=== PATIENT | female | born 1975 | race Caucasian/White ===

== ENCOUNTER → 2016-09-19 | Day surgery (SDC) | payer OTHER ==
[~2016-09-19] VITALS: Ht 160 cm; Wt 81.9 kg
[~2016-09-19] MED LIST: *morphine SULFATE 8 MG/ML PERIprocedure ONLY ONE; CHLORHEXIDINE GLUCONATE 2 % 1 PACK (2 CLOTHS) TOPICAL PRN; FAMOTIDINE 20 MG/2 ML VIAL ONE; INSULIN HUMAN REGULAR 1,000 UNITS/10 ML VIAL SQ PRN; LACTATED RINGER'S 1000 ML IV PRN; METOPROLOL TARTRATE 25 MG TAB PO PRN; MIDAZOLAM HCL 2 MG/2 ML VIAL ONE; MORPHINE SULFATE 4 MG/ML INJ IV PRN; ONDANSETRON HCL 4 MG/2 ML VIAL IV PUSH PRN; ONDANSETRON HCL 4 MG/2 ML VIAL ONE; POVIDONE IODINE 5% (ANTISEPSIS KIT) 4 APPLICATIONS EACH NARE PRN; PROPOFOL 200 MG/20 ML AMP IV ONE; SODIUM CHLORID 0.9% 500 ML IV PRN; ceFAZolin INJ 1,000 MG VIAL IV ONE; fentaNYL CITRATE 250 MCG/5 ML AMP ONE
[2016-09-19 08:25] VITALS: BP 140/80; PULSE 65; RESP 18; TEMP 97.6; O2SAT 100
[2016-09-19 08:48] LABS: AUTOMATED NEUTROPHIL # 3.6 TH/MM3 (1.8-7.7); BASOPHIL % 0.7 % (0.0-2.0); EOSINOPHIL # 0.1 TH/MM3 (0-0.4); EOSINOPHIL % 1.8 % (0.0-4.0); HEMATOCRIT 39.1 % (35.0-46.0); HEMO FLAGS DIFF FINAL; LYMPH % 32.4 % (9.0-44.0); MEAN CELL VOLUME 80.7 FL (80.0-100.0); MEAN CORPUSCULAR HEMOGLOBIN 26.6 PG (27.0-34.0); MONO % 7.8 % (0.0-8.0); NEUT % 57.3 % (16.0-70.0); PLATELET COUNT 228 TH/MM3 (150-450); RED BLOOD COUNT 4.84 MIL/MM3 (4.00-5.30); RED CELL DISTRIBUTION WIDTH 14.7 % (11.6-17.2); WHITE BLOOD COUNT 6.2 TH/MM3 (4.0-11.0)
--- NOTE | 2016-09-19 09:06 | RADRPT ---
EXAM DATE/TIME: 09/19/2016 08:20 [place] COMPARISON: No previous studies available for comparison. INDICATIONS : Pre op lithotripsy. Patient has kidney stone on right side. MEDICAL HISTORY : None. SURGICAL HISTORY : None. ENCOUNTER: Initial ACUITY: 1 day PAIN SCORE: 0/10 LOCATION: Bilateral Abdomen. FINDINGS: Single supine AP view of the abdomen. 8mm calculus in the region of the midpole of the right kidney. Bowel gas pattern within normal limits. Osseous structures within normal limits. CONCLUSION: 8 mm right renal calculus. Ric Fiore MD on September 19, 2016 at 9:03 Board Certified Radiologist. This report was verified electronically.
--- NOTE | 2016-09-19 10:48 | PD.OP ---
Operative Report Date of Surgery: September 19, 2016 Preoperative Diagnosis: 8 mm right renal stone Postoperative Diagnosis: Same Procedure: Right extracorporeal shockwave lithotripsy Anesthesia: Gen. LMA Surgeon: Kwasi Pollack Structural Engineering Project Manager(s): None Resident Surgeon: None Operation and Findings: 41-year-old female with findings of an 8 mm right renal stone. Decision was made for the patient undergo right extraportal shockwave lithotripsy. Risk and benefits were discussed preoperatively and she was willing to proceed. Patient was brought to the operating room identified by myself as Kisha Fiore. She is placed on the operating table in the supine position. She had received preprocedure antibiotics and general LMA anesthesia was administered. The stone was visualized under fluoroscopic imaging guidance. ESWL therapy commenced and a total of 2500 shocks were received. Good fragmentation the stone was visualized. She tolerated the procedure well was extubated and transferred area in stable condition. She'll follow-up in 2 weeks and undergo KUB x-ray prior to her visit. Patient requested not to have a stent placed pre- procedure. Kwasi Pollack DO September 19, 2016 10:48
[2016-09-19 12:05] VITALS: BP 129/78; PULSE 73; RESP 20; TEMP 97.8; O2SAT 100
== END | disposition home or self-care (01) ==
LOC: HSDC 07:41
PROVIDERS: ATTEND Urology
DX: N20.0 Calculus of kidney (principal); Z88.5 Allergy status to narcotic agent
CPT/HCPCS: 50590; 74000; 85025; J0690; J2250; J2270; J2405; J3010